=== PATIENT | female | born 1975 | race Caucasian/White ===

== ENCOUNTER 2018-01-22 00:26 | Outpatient (CLI) | payer OTHER, SELFPAY ==
--- NOTE | 2018-01-22 12:45 | DI.CT_ITS ---
SYMPTOMS/DIAGNOSIS: LT EAR PAIN, H92.02, JAW PAIN, R68.[address]: A noncontrast enhanced examination was performed. There is no evidence of an intra or extra-axial hemorrhage, mass edema or a territorial infarct. Small basal ganglia calcifications are identified and represent an incidental finding. The ventricles are normal. There is no evidence of skull pathology. The paranasal sinuses are unremarkable. The mastoid air cells are unremarkable. SUMMARY: Negative noncontrast enhanced cranial CT. CT EXAMINATION OF THE NECK: A with contrast enhanced CT examination of the neck was carried out according to the usual protocol with intravenous administration of 100 cc's of Omnipaque 350. There are numerous scattered lymph nodes at all levels in the neck bilaterally. There is no demonstrated mass. The salivary glands appear intact. The thyroid gland is normal. No vascular abnormality is seen. As visualized the bony structures appear unremarkable. There is no evidence of a CP angle or posterior fossa mass and nothing to suggest an acoustic neuroma. No definite vascular abnormality is seen. There is nothing to suggest a pharyngeal mass. The valleculae are intact. The vocal cords appear intact. There is no retropharyngeal soft tissue abnormality. The sinuses appear normal. No bony abnormality save for mild degenerative changes involving the lower cervical spine is demonstrated. SUMMARY: Numerous lymph nodes are noted in the neck. No enlarged lymph nodes are seen. There is no evidence of a soft tissue or bony mass. The visualized facial bones are intact. The mandible is intact. Also no definite abnormality is seen. No abnormality is identified, however, given the patient's symptomatology, further assessment with MRA of the neck and brain MRI is suggested.
== END 2018-01-22 00:46 ==
PROVIDERS: PCP Nurse Practitioner Family; Visit Provider Nurse Practitioner Family
DX: H92.02 Otalgia, left ear (principal); R68.84 Jaw pain; R59.0 Localized enlarged lymph nodes
CPT/HCPCS: 70491; 70450

== ENCOUNTER 2018-02-03 14:09 | Outpatient (REF) | payer OTHER, SELFPAY ==
[2018-02-03 14:25] LABS: Bilirubin Negative (Negative); Blood Negative (Negative); Clarity Clear; Glucose Negative (Negative); Ketones Negative (Negative); Leukocyte Esterase Negative (Negative); Nitrite Negative (Negative); Specific Gravity <= 1.005 (1.005-1.025); Urobilinogen 0.2 EU/dL (Up TO 0.2); pH 6.5 (5-8)
== END 2018-02-03 14:29 ==
LOC: LBN 14:09
PROVIDERS: PCP Nurse Practitioner Family; Visit Provider Nurse Practitioner Gerontology
DX: R35.0 Frequency of micturition (principal)
CPT/HCPCS: 87077; 81003; 87086; 87186

== ENCOUNTER 2018-02-23 15:42 | Outpatient (REF) | payer OTHER, SELFPAY ==
--- NOTE | 2018-02-23 15:00 | PAPFT_PTH ---
PATIENT: Che Yan LOC: [facility] U#:[id number] AGE/SX: 42/F ROOM: RE02/23/[address]: ARLEN Tilley : 1975 BED: DIS: 02/23/2018 SPEC #: [id number] RECD: 02/23/18 17:55 STATUS: AREN REMadisyn #: [id number] ASA: 02/23/18 15:[address]: Alyce Paul DEPT: [facility] Cytology RECD BY: Elaine Gonzalez ENTERED: 02/23/18 17:56 SP TYPE: PAPFT ASHLEY DR: Arely Osuna Tissues: 1 - CX/ENDOCX FOR PAP SMEARS Procedures: PAP THIN PREP/UVM Screening HPV DNA PROBE Comments: [id number]
== END 2018-02-23 16:02 ==
LOC: LBN 15:42
PROVIDERS: PCP Nurse Practitioner Family; Visit Provider Nurse Practitioner Family
DX: Z12.4 Encounter for screening for malignant neoplasm of cervix (principal); Z11.51 Encounter for screening for human papillomavirus (HPV)
CPT/HCPCS: 88142; 87624

== ENCOUNTER 2018-02-26 00:23 | Outpatient (CLI) | payer OTHER, SELFPAY ==
--- NOTE | 2018-02-26 15:47 | DI.MAMMO_ITS ---
SYMPTOMS/DIAGNOSIS: BASELINE SCREENING, Z12.31 BILATERAL SCREENING MAMMOGRAM: Mammograms were interpreted according to the usual protocol including computer analysis with CAD system, tomosynthesis and C view imaging. This is a baseline examination. The breasts are composed of heterogeneously dense fibroglandular tissue, breast density category C. In the superior right breast, there is a question of an area of nodular asymmetry versus overlying fibroglandular tissue. Spot compression views and ultrasound are requested for further evaluation. No abnormality seen in the left breast. IMPRESSION: Left breast category 1, negative. Right breast category 0. MQSA ASSESSMENT OF FINDINGS: Incomplete: Needs additional imaging evaluation. Category 0. Patient will receive a letter notifying them of these results. MQSA ASSESSMENT OF FINDINGS: Negative. Category 1. Patient will receive a letter notifying them of these results. Bi-RADS category C. The breasts are heterogeneously dense, which may obscure small masses.
== END 2018-02-26 00:43 ==
PROVIDERS: PCP Nurse Practitioner Family; Visit Provider Nurse Practitioner Family
DX: Z12.31 Encounter for screening mammogram for malignant neoplasm of breast (principal); R92.8 Other abnormal and inconclusive findings on diagnostic imaging of breast
CPT/HCPCS: 77063; 77067

== ENCOUNTER 2018-03-04 01:36 | Outpatient (CLI) | payer OTHER, SELFPAY ==
--- NOTE | 2018-03-04 10:55 | DI.COMBO_ITS ---
SYMPTOMS/DIAGNOSIS: F/U MAMMO, AREA OF NODULAR ASYMMETRY VS OVERLYING FIBROGLANDULAR TISSUE RT ADDITIONAL VIEWS OF THE RIGHT BREAST AND RIGHT BREAST ULTRASOUND: Additional images are interpreted according to the usual protocol including tomosynthesis and 2D imaging. Additional views of the right breast fail to show a persistent discrete mass. Breast density C. Right breast ultrasound was performed. The upper inner and upper outer quadrants were evaluated sonographically. No cystic or solid masses are seen. IMPRESSION: No evidence for malignancy. Yearly mammography is recommended. Category I. The findings were discussed with the patient on the date of the examination. SA ASSESSMENT OF FINDINGS: Negative. Category 1. Patient will receive a letter notifying them of these results. Bi-RADS category C. The breasts are heterogeneously dense, which may obscure small masses.
== END 2018-03-04 01:56 ==
PROVIDERS: PCP Nurse Practitioner Family; Visit Provider Nurse Practitioner Family
DX: Z12.31 Encounter for screening mammogram for malignant neoplasm of breast (principal); R92.8 Other abnormal and inconclusive findings on diagnostic imaging of breast; N64.59 Other signs and symptoms in breast
CPT/HCPCS: 76642; 77063; 77067

== ENCOUNTER 2018-05-20 15:07 | Outpatient (CLI) | payer OTHER, SELFPAY ==
--- NOTE | 2018-05-20 15:04 | DI.RAD_ITS ---
SYMPTOMS/DIAGNOSIS: SHORTNESS OF BREATH, R06.02 CHEST X-RAY, PA AND LATERAL: No priors. The heart is normal in size. The lungs are clear. The mediastinal structures and pleura appear intact. IMPRESSION: Normal chest.
[2018-05-20 16:19] LABS: Anion Gap 9.7 mmol/L (3-11); BUN 18 mg/dL (7-18); CO2 27.3 mmol/L (21.0-32.0); CREATININE 0.89 mg/dL (0.55-1.02); Calcium 9.6 mg/dL (8.5-10.1); Chloride 103 mmol/L (98-107); Glucose 115 mg/dL (70-100); Sodium 140 mmol/L (136-145)
[2018-05-20 16:25] LABS: HCT 42.7 % (36.0-46.0); HGB 14.3 g/dL (12.0-15.5); Mean Corp. HGB Concentration 33.5 g/dL (32.0-36.0); Mean Corpuscular Hemoglobin 30.8 pg (27.0-33.0); Mean Corpuscular Volume 91.8 fL (80-95); Mean Platelet Volume 11.6 fL (8.0-11.0); Platelet Count 261 x1000/uL (130-400); RBC 4.65 m/cumm (4.00-5.20); RBC Distribution Width 12.3 % (11.7-14.6); White Blood Cell Count 7.61 k/cumm (4.4-10.8)
[2018-05-20 18:36] LABS: D-Dimer 142 ng/mlFEU (<500)
== END 2018-05-20 15:27 ==
PROVIDERS: PCP Nurse Practitioner Family; Visit Provider Nurse Practitioner Family
DX: R06.02 Shortness of breath (principal)
CPT/HCPCS: 36415; 80048; 85027; 71046; 85379

== ENCOUNTER 2019-12-16 17:00 | Outpatient (REF) | payer OTHER, SELFPAY ==
[2019-12-16 17:42] LABS: Bilirubin Negative (Negative); Blood Negative (Negative); Clarity Clear (Clear); Glucose Negative (Negative); Ketones Negative (Negative); Leukocyte Esterase Negative (Negative); Nitrite Negative (Negative); Urobilinogen 0.2 EU/dL (Up TO 0.2); pH 5.5 (5-8)
== END 2019-12-16 17:20 ==
LOC: LBN 17:00
PROVIDERS: PCP Nurse Practitioner Family; Visit Provider Nurse Practitioner Gerontology
DX: R30.0 Dysuria (principal)
CPT/HCPCS: 81003

== ENCOUNTER 2020-02-10 14:19 | Outpatient (REF) | payer OTHER, SELFPAY ==
[2020-02-11 14:57] LABS: SARS-CoV-2 RNA Source Nasal/Nares
[2020-02-11 14:58] LABS: SARS-CoV-2 RNA Not Detected (NotDetected)
== END 2020-02-10 14:39 ==
LOC: NCHCN 14:19
PROVIDERS: PCP Nurse Practitioner Family; Visit Provider Nurse Practitioner Family
DX: Z11.59 Encounter for screening for other viral diseases (principal)
CPT/HCPCS: U0003

== ENCOUNTER 2020-05-18 10:31 | Outpatient (CLI) | payer OTHER, SELFPAY ==
--- NOTE | 2020-05-18 08:15 | DI.RAD_ITS ---
EXAM: XR FOOT LT COMPLETE CLINICAL HISTORY: L foot pain. TECHNIQUE: 2D digital imaging was performed. COMPARISON: No exams were available for comparison FINDINGS: There is no evidence of fracture nor diastasis of the Parisa neil joint. No osseous lesions nor erosio ns evident. No degenerative changes. No radiopaque foreign body. No pes planus. Os trigonum noted . IMPRESSION: DATA REPOSITORY: RADIATION DOSE DELIVERED:
== END 2020-05-18 10:32 | disposition home or self-care (01) ==
LOC: DIORS 10:32
PROVIDERS: PCP Nurse Practitioner Family; Referring Provider Nurse Practitioner Family; Visit Provider Physician Assistant
DX: M79.672 Pain in left foot (principal)
CPT/HCPCS: 73630

== ENCOUNTER 2020-05-30 07:00 | Outpatient (REF) | payer OTHER, SELFPAY | END 2020-05-30 07:01 | disposition home or self-care (01) | LOC: LBN 07:00 | PROVIDERS: PCP Nurse Practitioner Family; Visit Provider Nurse Practitioner Gerontology | DX: R30.0 Dysuria (principal) | CPT/HCPCS: 87086 ==

== ENCOUNTER 2020-07-18 13:46 | Outpatient (REF) | payer OTHER, SELFPAY | END 2020-07-18 13:47 | disposition home or self-care (01) | LOC: NCHCN 13:46 | PROVIDERS: PCP Nurse Practitioner Family; Visit Provider Family Medicine | DX: R30.0 Dysuria (principal) | CPT/HCPCS: 87086 ==

== ENCOUNTER 2021-08-21 16:11 | Outpatient (REF) | payer OTHER, SELFPAY ==
[2021-08-21 15:10] LABS: Vitamin B12 353 pg/mL (193-986)
[2021-08-22 10:23] LABS: Hepatitis C Ab w Rflx HCV PCR Negative (Negative)
[2021-08-23 06:52] LABS: Vitamin D 25 Total 30.8 ng/mL (30-100)
== END 2021-08-21 16:12 | disposition home or self-care (01) ==
LOC: NCHCN 16:11
PROVIDERS: PCP Nurse Practitioner Family; Visit Provider Nurse Practitioner Family
DX: Z00.00 Encounter for general adult medical examination without abnormal findings (principal); E55.9 Vitamin D deficiency, unspecified; R53.83 Other fatigue; G43.109 Migraine with aura, not intractable, without status migrainosus; Z11.59 Encounter for screening for other viral diseases; N80.3 Endometriosis of pelvic peritoneum
CPT/HCPCS: 82306; 86803; 82607; 84443

== ENCOUNTER 2022-01-25 01:48 | Outpatient (CLI) | payer OTHER, SELFPAY ==
[2022-01-29 17:30] LABS: Alternaria Tenuis IgE <0.35 kU/L; Bermuda Grass IgE <0.35 kU/L; Cat Epithelium IgE 2.12 kU/L; Cladosporium IgE <0.35 kU/L; Cockroach IgE <0.35 kU/L; Cottonwood IgE <0.35 kU/L; D Farinae IgE 1.26 kU/L; D Pteronyssinus IgE 1.04 kU/L; Dog Dander IgE 8.88 kU/L; Eastern Sycamore IgE <0.35 kU/L; Elm IgE <0.35 kU/L; Mountain Cedar IgE <0.35 kU/L; Oak IgE <0.35 kU/L; Red Sorrel IgE <0.35 kU/L; Rough Pigweed IgE <0.35 kU/L; Short Ragweed IgE <0.35 kU/L; Silver Birch IgE <0.35 kU/L; Timothy Grass IgE <0.35 kU/L; Walnut Tree IgE <0.35 kU/L
== END 2022-01-25 01:49 | disposition home or self-care (01) ==
LOC: LBO 01:49
PROVIDERS: PCP Nurse Practitioner Family; Visit Provider Nurse Practitioner Family
DX: J30.1 Allergic rhinitis due to pollen (principal); J30.2 Other seasonal allergic rhinitis; J30.81 Allergic rhinitis due to animal (cat) (dog) hair and dander; J30.89 Other allergic rhinitis
CPT/HCPCS: 82785; 86003

== ENCOUNTER 2023-01-27 14:50 | Outpatient (REF) | payer SELFPAY ==
[2023-01-27 16:06] LABS: Bilirubin Negative (Negative); Blood Small (Negative); Clarity Sl Cloudy (Clear); Glucose Negative (Negative); Ketones Negative (Negative); Leukocyte Esterase Large (Negative); Nitrite Negative (Negative); Specific Gravity 1.015 (1.005-1.025); Urobilinogen 0.2 mg/dL (Up to 0.2); pH 5.5 (5-8)
[2023-01-27 16:44] LABS: Bacteria Few HPF (Negative); C & S Indicated? C&S Done As Ordered; Casts Negative LPF (Negative); Crystals Negative HPF (Negative); Epithelial Cells Few HPF (Negative); Mucus Negative (Negative); RBC 0-2 HPF (0-2); WBC >50 HPF (0-5)
== END 2023-01-27 14:51 | disposition home or self-care (01) ==
LOC: LBN 14:50
PROVIDERS: PCP Nurse Practitioner Family; Visit Provider Nurse Practitioner Gerontology
DX: R10.2 Pelvic and perineal pain (principal); N32.89 Other specified disorders of bladder
CPT/HCPCS: 81003; 81015; 87086

== ENCOUNTER 2024-01-26 12:27 | Outpatient (REF) | payer BC, SELFPAY ==
[2024-01-26 11:53] LABS: Bilirubin Negative (Negative); Blood Negative (Negative); Clarity Clear (Clear); Glucose Negative (Negative); Ketones Negative (Negative); Leukocyte Esterase Small (Negative); Nitrite Negative (Negative); Specific Gravity <= 1.005 (1.005-1.025); Urobilinogen 0.2 mg/dL (Up to 0.2)
[2024-01-26 11:55] LABS: Bacteria Moderate HPF (Negative); Casts Negative LPF (Negative); Crystals Negative HPF (Negative); Epithelial Cells Few HPF (Negative); Mucus Negative (Negative); RBC Negative HPF (0-2)
[2024-01-26 11:56] LABS: C & S Indicated? C&S Done As Ordered
== END 2024-01-26 12:28 | disposition home or self-care (01) ==
LOC: LBN 12:27
PROVIDERS: PCP Nurse Practitioner Family; Visit Provider Nurse Practitioner Gerontology
DX: R31.0 Gross hematuria (principal); R30.0 Dysuria; B96.29 Other Escherichia coli [E. coli] as the cause of diseases classified elsewhere
CPT/HCPCS: 87077; 81003; 81015; 87086; 87186

== ENCOUNTER 2024-02-23 15:58 | Outpatient (REF) | payer BC, SELFPAY ==
--- OUTSIDE RECORDS SUMMARY | 2024-02-23 16:00 | XMS_ITS | Encounter Summary ---
Author Organization [facility] [address] Care Team Providers Care Junior Administrative Assistant Name Role Phone Arely Osuna LUC Primary Care Provider [phone] Reason for Visit * Reason Comments Follow-up subacromial injectio n R shoulder Encounter Details Date Type Department Care Team (Late st Contact Info) Description 12/11/2020 1:30 PM EDT Office Visit Orthopaedics at [address] [phone] Cyndie Yancey PA [address] [place] [address] [place] [address] Calcific tendinitis of right shoulder Social History Tobacco Use Types Packs/Day Years Used Date Smoking Tobacco: Never Smokeless Tobacco: Never Alcohol Use Standard Drinks/Week Comments Yes 2 (1 standard drink = 0.6 oz pur e alcohol) Sex and Gender Information Value Date Recorded Sex Assigned at Not on file Gender Identity Not on file Sexual Orientation Not on file documented as of this encounter Last Filed Vital Signs Vital Sign Reading Time Taken Comments Blood Pressure 124/85 12/11/2020 1:56 PM EDT Pulse 85 12/11/2020 1:56 PM EDT Temperature - - Respiratory Rate - - Oxygen Saturation - - Inhaled Oxygen Concentration - - Weight 63.5 kg (140 lb) 12/11/2020 1:56 PM EDT Height 160 cm (5' 3) 12/11/2020 1:56 PM EDT Body Mass Index 24.8 12/11/2020 1:56 PM EDT documented in this encounter Patient Instructions * Patient Instructions* Cyndie Yancey PA - 12/11/2020 1:30 PM EDT Responses to injections are variable. Try to take it easy for a few days to allow reduction of inflammation. Gentle range of motion exercises may help mitigate any feelings of stiffness or pressure in the joint and help distribute the medication. The medicine in the injection contains a local anesthetic that will wear off within a few hours. This doesn't mean that the injection did not work! It will likely take a few days for the steroid to take effect and for the inflammation to reduce to a degree where your symptoms improve. Should you develop any discomfort over the injection area, try take Tylenol or ibuprofen to alleviate the discomfort. If you notice any redness/swelling, drainage from the injection site, fevers, chills or severely increased pain after your injection, call into clinic or seek urgent medical evaluation right away. documented in this encounter Progress Notes * Cyndie Yancey PA - 12/11/2020 1:30 PM EDT PATIENT NAME: Che Yan AGE: 45 y.o. MR#: [id number] DATE OF INJURY/ONSET: ~8-9 weeks ago STAFF: Myriam Gamboa MD CHIEF COMPLAINT: follow up right shoulder pain/inury HISTORY OF PRESENT ILLNESS: Che Yan is a 45 y.o. female with a history of right SLAP repair in 2005 at [facility] who comes into clinic today for follow up regarding the right shoulder. She was last seen in clinic on 11/24/20 at which time she was referred for MR arthrogram which demonstrated SLAP tear and calcific tendinopathy. After reviewing case with Dr. Gamboa, he recommended trial of subacromialinjection first for diagnostic and therapeutic purposes to address pain related to the calcific tendinopathy, followed by image-guided GH joint injection as needed for diagnostic/therapeutic purposesafter that. This was discussed with patient over the phone 12/08, and she presents today for subacrom ial injection. PHYSICAL EXAM: This is a 45 y.o. female who is alert, oriented and in no acute distress. Visible skin is intact without erythema, ecchymosis or ulceration. No edema noted. Upper extremity is warm and well perfused. Sensation present to light touch throughout the nerve distributions of the upper extremity. There is tenderness to palpation over the lateral deltoid, coracoid, anterior GH joint line. Non-TTP over the clavicle, AC joint, scapular spine or trapezius. She demonstrates unrestricted elbow, wrist and finger motion. She demonstrates active forward flexion to 170; ER to 70; IR to lower thoracic spine (discomfort with all active ROM). Rotator cuff strength testing 5/5 in ER, IR, 5-/5 FF and empty can. Positive impingement signs. Positive [place]'s. Painful apprehension testing. Negative cross arm testing. DIAGNOSTIC STUDIES: MR arthrogram obtained 12/07 notable for SLAP lesion and calcific tendinopathy. MEDICAL DECISION MAKING: This is a 45 y.o. female with a history of right SLAP repair in 2005 at [facility] who presents for evaluation of right shoulder pain since an injury sustained playing volleyball ~8-9 weeks ago with MR arthrogram with SLAP lesion and calcific tendinopathy. -- Subacromial injection performed today in clinic as documented below, patient tolerated well -- Continue rest, ice, heat, Tylenol, NSAIDs for symptom relief (prescription provided for meloxicam, advised to take with food) -- She will monitor symptoms over the next 2 hours, 2 days, or 2 weeks. We will touch base in 2 weeks to assess her symptoms. If persistently symptomatic, would consider image-guided glenohumeral joint injection for diagnostic/therapeutic purposes -- She understands to contact us if they have any questions or concerns prior to their next clinic visit. PROCEDURE NOTE: SUBACROMIAL BURSA INJECTION A time-out was performed and the right shoulder was confirmed to be the patient's desired site of injection. The patient denied any known allergies to betadine, local anesthetics or corticosteroids. The patient was counseled about the potential risks of the procedure including but not limited to: infection, bleeding, steroid flare, transient increase in blood glucose, nerve/cartilage/tendon injury, and skin blanching at the injection site. There is also increased risk with repeated injections. Following time-out, the skin was prepped widely over the posterolateral aspect of the shoulder withalcohol and betadine. Using sterile technique, a solution consisting of 4cc 2% lidocaine and 1 cc Kenalog 40 (40 mg) was injected just inferior and medial to the posterolateral corner of the acromionand directed toward the coracoid process using a 22 gauge needle. The needle was felt to slide justinferior to the acromion and the medications flowed freely into the subacromial space. The skin wassubsequently cleansed with alcohol and a band-aid was applied. Post-injection education was provided. The patient tolerated the procedure well. They are aware to contact the office should they develop any concerning symptoms post-procedure or if they have any questions or concerns. Cyndie Yancey PA-C documented in this encounter Plan of Treatment Not on file documented as of this encounter Visit Diagnoses Diagnosis Calcific tendinitis of right shoulder Calcifying tendinitis of shoulder documented in this encounter Administered Medications Inactive Administered Medications - up to 3 most recent administrations Medication Order MAR Action Action Date Dose Rate Site lidocaine (pf) (Xylocaine) (20 mg/mL) 2% injection 80 mg 80 mg, Subcutaneous, ONCE, 1 dose, On Fri12/11/20 at 1430, Routine Given 12/11/2020 2:10 PM EDT 80 mg triamcinolone acetonide (Kenalog-40) (40 mg/mL) injection 40 mg 40 mg, Intra-articular, ONCE, 1 dose, On Fri12/11/20 at 1430, In-office injection into the subacromial space of the shoulder, Routine Given 12/11/2020 2:10 PM EDT 40 mg documented in this encounter Care Teams Junior Administrative Assistant Relationship Specialty Start Date End Date Arely Osuna APRN [address] [place] [address] PCP - General Family Medicine 12/07/20 documented as of this encounter
--- OUTSIDE RECORDS SUMMARY | 2024-02-23 16:00 | XMS_ITS | Encounter Summary ---
Author Organization [facility] [place] [address] Care Team Providers Care Groundskeeping Maintenance Worker Name Role Phone Arely Osuna LUC Primary Care Provider [phone] Encounter Details Date Type Department Care Team (Late st Contact Info) Description 12/25/2020 Telephone [place] [id number] Cyndie Yancey PA [address] [place] [address] [place] [address] Social History Tobacco Use Types Packs/Day Years Used Date Smoking Tobacco: Never Smokeless Tobacco: Never Alcohol Use Standard Drinks/Week Comments Yes 2 (1 standard drink = 0.6 oz pur e alcohol) Sex and Gender Information Value Date Recorded Sex Assigned at Not on file Gender Identity Not on file Sexual Orientation Not on file documented as of this encounter Miscellaneous Notes * Telephone Encounter - Cyndie Yancey PA - 12/25/2020 11:02 AM EDT Called to speak to patient to check in re: results of recent subacromial injection performed in clinic 12/11/20. She reports that she is feeling much better; reports ~3 days after the injection she noticed improvement in her symptoms. Reports that the shoulder has been feeling even better than it was before her initial clinic visit. For now, she wishes to continue with Physical Therapy and monitoring of her symptoms. She will call or return to clinic with any recurrence or worsening pain or any questions or concerns. documented in this encounter Plan of Treatment Not on file documented as of this encounter Visit Diagnoses Not on filedocumented in this encounter Care Teams Groundskeeping Maintenance Worker Relationship Specialty Start Date End Date Arely Osuna APRN [address] [place] [address] PCP - General Family Medicine 12/07/20 documented as of this encounter
--- OUTSIDE RECORDS SUMMARY | 2024-02-23 16:00 | XMS_ITS | Encounter Summary ---
[facility] [place] [address] Care Team Providers Care Director Of Institutional Sales Name Role Phone None Primary Care Provider Unavailabl e Encounter Details Date Type Department Care Team (Late st Contact Info) Description 11/24/2020 [place] [address] Val Moses MD [facility] [place] [address] Social History Tobacco Use Types Packs/Day Years Used Date Smoking Tobacco: Never Smokeless Tobacco: Never Alcohol Use Standard Drinks/Week Comments Yes 2 (1 standard drink = 0.6 oz pur e alcohol) Sex and Gender Information Value Date Recorded Sex Assigned at Not on file Gender Identity Not on file Sexual Orientation Not on file documented as of this encounter Plan of Treatment Not on file documented as of this encounter Visit Diagnoses Not on filedocumented in this encounter Care Teams Director Of Institutional Sales Relationship Specialty Start Date End Date None None PCP - General 02/10/20 12/06/20 documented as of this encounter
--- OUTSIDE RECORDS SUMMARY | 2024-02-23 16:00 | XMS_ITS | Encounter Summary ---
[facility] [place] [address] Care Team Providers Care Recreation Attendant Name Role Phone Arely Osuna GRAPHICS ARTIST Primary Care Provider [phone] Encounter Details Date Type Department Care Team (Latest Contact Info) Description 12/07/2020 1:00 PM EDT Ancillary Procedure Radiology Xray at [facility] [place] [id number] Myriam Gamboa MD [facility] [place] [address] Injury of right shoulder, initial encounter; History of Superior glenoid labrum lesion of right shoulder, s/p repair at [facility]SH in 2005 Social History Tobacco Use Types Packs/Day Years [...] on file documented as of this encounter Procedures Procedure Name Priority Date/Time Associated Diagnosis Comments XR FLUORO ARTHROGRAM INJECTION SHOULDER RIGHT Routine 12/07/2020 1:29 PM EDT Injury of right shoulder, initial encounter History of Superior glenoid labrum lesion of right shoulder, s/p repair at [facility]SH in 2005 documented in this encounter Results * XR Fluoro Arthrogram Injection Shoulder Right (12/07/2020 1:29 PM EDT) Anatomical Region Laterality Modality Shoulder Right Digital Radiogra phy Impressions 12/07/2020 1:43 PM EDT Uneventful arthrogram Thank you for letting us participate in the care of this patient. ??If you are a health care provider and have any questions regarding this report, please contact the number below. ??For patients who have questions please contact the health spiritual care coordinator that requested your imaging first. ? Narrative 12/07/2020 1:43 PM EDT HISTORY: ??right shoulder injury, history of SLAP repair, new injury/pain, MR arthrogram of Arthrogram For Injection Of Contrast TECHNIQUE: After an extensive conversation with the patient regarding risks and benefits, oral and written consent were obtained.? A pre-procedural time-out was performed, including review of the patient's relevant electronic medical record and allergies, as per [facility] protocol. The patient was positioned supine on the fluoroscopic table. ??The right was prepped and draped in the usual aseptic manner. ??1% Lidocaine was used to achieve local anesthesia. ??Under fluoroscopic guidance, a 22 spinal needle was advanced into the joint space. ??After confirmation of intra-articular location of needle tip by using a small injection of the contrast mixture, a total of 12 ml of the contrast mixture was injected. All needles removed at end of procedure. FINDINGS: 1. Contrast in 12 joint space 2. Additional post-contrast injection images were obtained in different projections. MEDICATIONS: Lidocaine 1% - <5 ml, for subcutaneous anesthesia CONTRAST: 20cc mixture of the following were prepared: Dotarem- .1cc (1/100 dilution) Normal Saline - 10ml Omnipaque 300 Utilized: 5 mL 1% Lidocaine - 5ml Only 12 ml of this mixture injected into joint space. FLUORO TIME: 0.43 minutes. COMPLICATIONS: ??None immediate. POST-PROCEDURE CARE: Instructions regarding monitor of infection and management of post-procedural pain were reviewed with the patient. Procedure Note Luis Lechuga MD - 12/07/2020 HISTORY: right shoulder injury, history of SLAP repair, new injury/pain,MR arthrogram of Arthrogram For Injection Of Contrast TECHNIQUE: After an extensive conversation with the patient regarding risks andbenefits, oral and written consent were obtained.? A pre-procedural time-out was performed, including review of the patient's relevant electronic medicalrecord and allergies, as per [facility] protocol. The patient was positioned supine on the fluoroscopic table. The rightwas prepped and draped in the usual aseptic manner. 1% Lidocaine was usedto achieve local anesthesia. Under fluoroscopic guidance, a 22 spinal needlewas advanced into the joint space. After confirmation of intra-articularlocation of needle tip by using a small injection of the contrast mixture, a totalof 12 ml of the contrast mixture was injected. All needles removed at end of procedure. FINDINGS: 1. Contrast in 12 joint space 2. Additional post-contrast injection images were obtained in different projections. MEDICATIONS: Lidocaine 1% - <5 ml, for subcutaneous anesthesia CONTRAST: 20cc mixture of the following were prepared: Dotarem- .1cc (1/100 dilution) Normal Saline - 10ml Omnipaque 300 Utilized: 5 mL 1% Lidocaine - 5ml Only 12 ml of this mixture injected into joint space. FLUORO TIME: 0.43 minutes. COMPLICATIONS: None immediate. POST-PROCEDURE CARE: Instructions regarding monitor of infection andmanagement of post-procedural pain were reviewed with the patient. IMPRESSION Uneventful arthrogram Thank you for letting us participate in the care of this patient. If youare a health care provider and have any questions regarding this report,please contact the number below. For patients who have questions please contactthe health spiritual care coordinator that requested your imaging first. Myriam Gamboa MD IMG FLUORO ORDERABLE S documented in this encounter Visit Diagnoses Diagnosis Injury of right shoulder, initial encounter History of Superior glenoid labrum lesion of right shoulder, s/p repair at [facility] in 2005 documented in this encounter Administered Medications Inactive Administered Medications - up to 3 most recent administrations Medication Order MAR Action Action Date Dose Rate Site gadoterate meglumine (Dotarem) (0.5 mMol/mL) injection solution 0.2 mL 0.2 mL, Intra-articular, ONCE PRN, 1 dose, Starting on Sirisha 12/07/20 at 1303, Until Sirisha 12/07/20 at 1327, Per Protocol, Routine Given 12/07/2020 1:27 PM EDT 0.2 mLs iohexoL (Omnipaque) (300 mg/mL) injection solution 5 mL 5 mL, Intra-articular, ONCE PRN, 1 dose, Starting on Sirisha 12/07/20 at 1303, Until Sirisha 12/07/20 at 1326, Per Protocol, Warning Vesicant/Irritant Medication , Routine Given 12/07/2020 1:26 PM EDT 5 mLs lidocaine (Xylocaine) 1% (10 mg/mL) injection 50 mg 50 mg (5 mL), Subcutaneous, ONCE, 1 dose, On Sirisha 12/07/20 at 1330, Routine Given 12/07/2020 1:24 PM EDT 50 mg documented in this encounter Care Teams Recreation Attendant Relationship Specialty Start Date End Date Arely Osuna APRN [address] [place] [address] PCP - General Family Medicine 12/07/20 documented as of this encounter
--- OUTSIDE RECORDS SUMMARY | 2024-02-23 16:00 | XMS_ITS | Encounter Summary ---
Author Organization [facility] Address [facility] [place] [address] Care Team Providers Care Communications Equipment Operator Name Role Phone None Primary Care Provider Unavailabl e Encounter Details Date Type Department Care Team (Latest Contact Info) Description 11/24/2020 11:53 AM EDT - 11/24/2020 11:59 PM EDT Hospital Encounter XRay at [address] [place] [address] Myriam Gamboa MD [facility] [place] [address] Injury of right shoulder, initial encounter; Superior glenoid labrum lesion of right shoulder, initial encounter Discharge Disposition: Home Social History Tobacco Use Types Packs/Day Years Used Date Smoking Tobacco: Never Smokeless Tobacco: Never Alcohol Use Standard Drinks/Week Comments Yes 2 (1 standard drink = 0.6 oz pur e alcohol) Sex and Gender Information Value Date Recorded Sex Assigned at Not on file Gender Identity Not on file Sexual Orientation Not on file documented as of this encounter Medications at Time of Discharge Medication Sig Dispensed Refills Start Date End Date fluticasone propionate (Flovent HFA) 110 mcg/actuation HFA Aerosol Inhaler Inhale 1 puff into the lungs 2 times daily. levalbuteroL (XOPENEX HFA) 45 mcg/actuation HFA Aerosol Inhaler Inhale 1-2 puffs into the lungs every 4 hours as needed. fexofenadine HCl (STAN ALLERGY ORAL) Take by mouth. documented as of this encounter Plan of Treatment Not on file documented as of this encounter Procedures Procedure Name Priority Date/Time Associated Diagnosis Comments XR SHOULDER RIGHT Routine 11/24/2020 12: 04 PM EDT Injury of right shoulder, initial encounter Superior glenoid labrum lesion of right shoulder, initial encounter documented in this encounter Results * XR Shoulder Right (Generic) (11/24/2020 12:04 PM EDT) Anatomical Region Laterality Modality Shoulder Right Digital Radiogra phy Impressions 11/24/2020 4:29 PM EDT 1. ??Infraspinatus and subscapularis calcific tendinopathy. 2. ??No acute fracture is identified. I have personally reviewed the image(s) and the resident's interpretation and agree with the findings, Val Moses MD at 11/24/2020 4:29 PM Thank you for letting us participate in the care of this patient. ??If you are a health care provider and have any questions regarding this report, please contact the number below. ??For patients who have questions please contact the health career specialist that requested your imaging first. ? Electronically signed by: Val Moses MD, [facility] ([phone]), at 11/24/2020 4:29 PM Narrative 11/24/2020 4:29 PM EDT EXAMINATION: XR SHOULDER RIGHT (GENERIC) CLINICAL HISTORY: right shoulder injury, rule out occult fracture (as entered by ordering provider in the order requisition) TECHNIQUE: AP, Grashey, scapular Y, axillary views of the right shoulder. COMPARISON: None FINDINGS: No fracture or malalignment. Glenohumeral joint space is preserved. 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 Amorphous calcifications adjacent to the greater and lesser tuberosities, at the insertions of the infraspinatus and subscapularis. Procedure Note Val Moses MD - 11/24/2020 EXAMINATION: XR SHOULDER RIGHT (GENERIC) CLINICAL HISTORY: right shoulder injury, rule out occult fracture (asentered by ordering provider in the order requisition) TECHNIQUE: AP, Grashey, scapular Y, axillary views of the right shoulder. COMPARISON: None FINDINGS: No fracture or malalignment. Glenohumeral joint space is preserved. 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 Amorphous calcifications adjacent to the greater andlesser tuberosities, at the insertions of the infraspinatus and subscapularis. IMPRESSION 1. Infraspinatus and subscapularis calcific tendinopathy. 2. No acute fracture is identified. I have personally reviewed the image(s) and the resident's interpretationand agree with the findings, Val Moses MD at 11/24/2020 4:29 PM Thank you for letting us participate in the care of this patient. If youare a health care provider and have any questions regarding this report,please contact the number below. For patients who have questions please contactthe health career specialist that requested your imaging first. Electronically signed by: Val Moses MD, [facility]([phone]), at 11/24/2020 4:29 PM Myriam Gamboa MD IMG DX ORDERABLES documented in this encounter Visit Diagnoses Diagnosis Injury of right shoulder, initial encounter Superior glenoid labrum lesion of right shoulder, initial encounter documented in this encounter Care Teams Communications Equipment Operator Relationship Specialty Start Date End Date None None PCP - General 02/10/20 12/06/20 documented as of this encounter
--- OUTSIDE RECORDS SUMMARY | 2024-02-23 16:00 | XMS_ITS | Encounter Summary ---
Author Organization [facility] [place] [address] Care Team Providers Care Mill Crane Operator Name Role Phone EnrriqueSusana wuhryn Darian CALLE Primary Care Provider [phone] Reason for Referral * Diagnostic Test (Routine) - Closed Specialty Diagnoses / Procedures Referred By Contac t Referred To Contact Radiology Diagnoses Injury of right shoulder, initial encounter Superior glenoid labrum lesion of right shoulder, initial encounter Procedures MRI Arthrogram Shoulder Right Cyndie Yancey PA [facility] [place] [address] [facility] [address] [place] [address] Referral ID Status Reason Start Date Expiration Date V isits Requested Visits Authorized [id number] Closed Specialty Service Requested 11/24/2020 05/24/2022 1 1 Reason for Visit * Diagnostic Test (Routine) - Closed Specialty Diagnoses / Procedures Referred By Contac t Referred To Contact Radiology Diagnoses Injury of right shoulder, initial encounter Superior glenoid labrum lesion of right shoulder, initial encounter Procedures MRI Arthrogram Shoulder Right Cyndie Yancey PA [facility] [place] [address] [facility] [address] [place] [address] Referral ID Status Reason Start Date Expiration Date V isits Requested Visits Authorized [id number] Closed Specialty Service Requested 11/24/2020 05/24/2022 1 1 Encounter Details Date Type Department Care Team (Latest Contact Info) Description 12/07/2020 12:57 PM EDT - 12/07/2020 11:59 PM EDT Hospital Encounter Radiology MRI at [facility] [place] [address] Myriam Gamboa MD [facility] [place] [address] Injury of right shoulder, initial encounter; History of Superior glenoid labrum lesion of right shoulder, s/p repair at [facility] in 2005 Discharge Disposition: Home Social History Tobacco Use [...] Procedure Name Priority Date/Time Associated Diagnosis Comments MRI ARTHROGRAM SHOULDER RIGHT Routine 12/07/2020 2:28 PM EDT Injury of right shoulder, initial encounter History of Superior glenoid labrum lesion of right shoulder, s/p repair at [facility] in 2005 documented in this encounter Results * MRI Arthrogram Shoulder Right (12/07/2020 2:28 PM EDT) Anatomical Region Laterality Modality Shoulder Right Magnetic Resonan ce Impressions 12/07/2020 2:45 PM EDT Complex SLAP tear of the superior labrum, involving the biceps anchor. High-grade partial tear at the biceps anchor. Minimally displaced tear at the posterior labrum chondral labral junction. Calcific tendinosis of the rotator cuff without discrete rotator cuff tear. Thank you for letting us participate in the care of this patient. ??If you are a health care provider and have any questions regarding this report, please contact the number below. ??For patients who have questions please contact the health manager career that requested your imaging first. ? Electronically signed by: Wenceslao Rudd MD, [facility] ([phone]), at 12/07/2020 2:45 PM Narrative 12/07/2020 2:45 PM EDT EXAMINATION: MRI ARTHROGRAM SHOULDER RIGHT CLINICAL HISTORY: Shoulder pain, labral tear suspected, nondiagnostic xray TECHNIQUE: MRI of the right shoulder was performed after administration of intra-articular contrast. COMPARISON: 11/24/2020 radiographs of the right shoulder FINDINGS: Rotator cuff Supraspinatus and infraspinatus: At the bursal surface of the posterior supraspinatus/anterior infraspinatus footprint, there is globular mineralization with adjacent mild edema. The tendon is heterogeneous. There is no discrete tear. Subscapularis: There is globular mineralization adjacent to the bursal surface of the subscapularis with adjacent mild edema. No tear. Teres minor: Normal Muscle bulk: Normal Deltoid: Normal Labrum: The superior labrum is truncated and has complex tearing series 7 image 15, extending from anterior to posterior. It also involves the biceps anchor. There is a high-grade partial tear at the biceps anchor series 10 image 8. The labral tear also extends into the posterior labrum where it is truncated and minimally displaced at the chondral labral junction series 10 image 13. Long head of the biceps: High-grade partial tear at the biceps anchor. Normal extra-articular biceps. Bones: No fracture. [place] at the superior glenoid, consistent with prior repair. Normal cartilage. Glenohumeral joint: Normal cartilage. No intra-articular body seen. Acromioclavicular joint: Mild hypertrophy. Subacromial/subdeltoid bursal fluid: No extravasation of fluid into the bursa. Procedure Note Wenceslao Rudd MD - 12/07/2020 EXAMINATION: MRI ARTHROGRAM SHOULDER RIGHT CLINICAL HISTORY: Shoulder pain, labral tear suspected, nondiagnosticxray TECHNIQUE: MRI of the right shoulder was performed after administration ofintra-articular contrast. COMPARISON: 11/24/2020 radiographs of the right shoulder FINDINGS: Rotator cuff Supraspinatus and infraspinatus: At the bursal surface of the posterior supraspinatus/anterior infraspinatus footprint, there is globularmineralization with adjacent mild edema. The tendon is heterogeneous. There is nodiscrete tear. Subscapularis: There is globular mineralization adjacent to the bursalsurface of the subscapularis with adjacent mild edema. No tear. Teres minor: Normal Muscle bulk: Normal Deltoid: Normal Labrum: The superior labrum is truncated and has complex tearing series 7image 15, extending from anterior to posterior. It also involves the bicepsanchor. There is a high-grade partial tear at the biceps anchor series 10 image 8.The labral tear also extends into the posterior labrum where it is truncatedand minimally displaced at the chondral labral junction series 10 image 13. Long head of the biceps: High-grade partial tear at the biceps anchor.Normal extra-articular biceps. Bones: No fracture. [place] at the superior glenoid, consistent withprior repair. Normal cartilage. Glenohumeral joint: Normal cartilage. No intra-articular body seen. Acromioclavicular joint: Mild hypertrophy. Subacromial/subdeltoid bursal fluid: No extravasation of fluid into thebursa. IMPRESSION Complex SLAP tear of the superior labrum, involving the biceps anchor. High-grade partial tear at the biceps anchor. Minimally displaced tear atthe posterior labrum chondral labral junction. Calcific tendinosis of the rotator cuff without discrete rotator cufftear. Thank you for letting us participate in the care of this patient. If youare a health care provider and have any questions regarding this report,please contact the number below. For patients who have questions please contactthe health manager career that requested your imaging first. Electronically signed by: Wenceslao Rudd MD, [facility]([phone]), at 12/07/2020 2:45 PM Myriam Gamboa MD IM MRI ORDERABLES documented in this encounter Visit Diagnoses Diagnosis Injury of right shoulder, initial encounter History of Superior glenoid labrum lesion of right shoulder, s/p repair at [facility] in 2005 documented in this encounter Care Teams Mill Crane Operator Relationship Specialty Start Date End Date Arely Osuna APRN [address] [place] [address] PCP - General Family Medicine 12/07/20 documented as of this encounter
--- OUTSIDE RECORDS SUMMARY | 2024-02-23 16:00 | XMS_ITS | Encounter Summary ---
Author Organization [facility] [place] [address] Care Team Providers Care Contract Implementation Analyst Name Role Phone Arely Osuna APRN Primary Care Provider [phone] Encounter Details Date Type Department Care Team (Late st Contact Info) Description 12/08/2020 Telephone [place] [id number] Cyndie Yancey PA [address] [place] [address] [place] [address] Social History Tobacco Use Types Packs/Day Years [...] Telephone Encounter - Cyndie Yancey PA - 12/08/2020 10:33 AM EDT Contacted patient after reviewing imaging/case with Dr. Gamboa. He recommends trial of subacromial injection first for diagnostic and therapeutic purposes to address pain related to the calcific tendinopathy. If subacromial injection only relieves a portion of her pain, would consider image-guided glenohumeral joint injection also for diagnostic/therapeutic purposes. Recommend PT in addition to theabove. If persistently symptomatic despite aforementioned treatment, could consider surgical intervention in future as warranted. Will ask our team to contact patient to schedule return clinic visit for subacromial injection. documented in this encounter Plan of Treatment Not on file documented as of this encounter Visit Diagnoses Not on filedocumented in this encounter Care Teams Contract Implementation Analyst Relationship Specialty Start Date End Date Arely Osuna APRN [address] [place] [address] PCP - General Family Medicine 12/07/20 documented as of this encounter
--- OUTSIDE RECORDS SUMMARY | 2024-02-23 16:00 | XMS_ITS | Clinical Summary ---
Author Organization [facility] [place] [address] Care Team Providers Care Production Officer Name Role Phone EnrriqueSusana wusorin Farmer APRN Primary Care Provider [phone] [phone] Allergies No known active allergies Medications Medication Sig Dispensed Refills Start Date End Date Status fluticasone propionate (Flovent HFA) 110 mcg/actuation HFA Aerosol Inhaler Inhale 1 puff into the lungs 2 times daily. Active levalbuteroL (XOPENEX HFA) 45 mcg/actuation HFA Aerosol Inhaler Inhale 1-2 puffs into the lungs every 4 hours as needed. Active fexofenadine HCl (STAN ALLERGY ORAL) Take by mouth. Active ibuprofen (Advil) 800 mg Tablet Take 800 mg by mouth every 6 hours as needed for Pain. Active meloxicam (MOBIC) 15 mg TabletIndications:[place] cific tendinitis of right shoulder Take 1 tablet by mouth daily. 30 tablet 12/11/2020 Active Active Problems No known active problems Social History Tobacco Use Types Packs/Day Years Used Date Smoking Tobacco: Never Smokeless Tobacco: Never Alcohol Use Standard Drinks/Week Comments Yes 2 (1 standard drink = 0.6 oz pur e alcohol) Sex and Gender Information Value Date Recorded Sex Assigned at Not on file Gender Identity Not on file Sexual Orientation Not on file Last Filed Vital Signs Vital Sign Reading [...] Mass Index 24.8 12/11/2020 1:56 PM EDT Plan of Treatment Health Maintenance Due Date Last Done Comments CT Colonography 1974 Colonoscopy 1974 Colorectal Cancer Screening 1974 FIT DNA 1974 FIT 1974 Sigmoidoscopy (10 year) with FIT yearly 1974 Sigmoidoscopy 1974 HIV screen 1992 Hepatitis C Screening 1992 Hepatitis B vaccine (0-59 yrs) (1) 1993 Tetanus/Diphtheria/Pertussis Vaccines (1 - Tdap) 05/28 HPV test 2004 PAP Smear 2004 Breast Cancer Share Decision Needed 2014 Breast Cancer screening 2014 Covid-19 Vaccine ( - season) 2023 Influenza (Flu) vaccine (1 o f 1 - Influenza standard series) 11/23/2023 Care Teams Production Officer Relationship Specialty Start Date End Date Arely Osuna APRN [address] [place] [address] PCP - General Family Medicine 12/07/20
--- OUTSIDE RECORDS SUMMARY | 2024-02-23 16:01 | XMS_ITS | Encounter Summary ---
Author Organization [facility] [place] [address] Care Team Providers Care Core Cutter Name Role Phone None Primary Care Provider Unavailabl e Encounter Details Date Type Department Care Team (Latest Contact Info) Description 02/10/2020 2:58 PM EST - 02/10/2020 11:59 PM EST Hospital [place] [address] Discharge Disposition: Home Social History Tobacco Use Types Packs/Day Years Used Date Smoking Tobacco: Never Assessed Sex and Gender Information Value Date Recorded Sex Assigned at Not on file Gender Identity Not on file Sexual Orientation Not on file documented as of this encounter Plan of Treatment Not on file documented as of this encounter Procedures Procedure Name Priority Date/Time Associated Diagnosis Comments COVID-19 PCR Routine 02/10/2020 8:18 AM EST documented in this encounter Results * COVID-19 PCR (02/10/2020 8:18 AM EST) SARS-CoV-2 RNA Not Detected Not Detected [facility] Comment: This result should be interpreted in combination with the clinical observations, patient history and epidemiological information in making a final diagnosis. For testing of asymptomatic individuals, assay performance characteristics and clinical utility have not been evaluated. Testing for SARS-CoV-2 (Severe acute respiratory syndrome coronavirus 2, formerly known as 2019 novel coronavirus or 2019-nCoV) to aid in the diagnosis of COVID-19 is performed using the [employer] RealTime SARS-CoV-2 Assay as authorized by the FDA Emergency Use Authorization (EUA). This EUA assay is intended for In-vitro Diagnostic (IVD) use with respiratory specimens such as nasopharyngeal swabs collected from individuals during the acute phase of infection. This assay is performed based on the instructions for use provided by [employer] and additional guidance provided by CDC and FDA. Testing is performed in the [facility] within the Department of Pathology and Laboratory Medicine at [facility], certified under the Clinical Laboratory Improvement Amendments of 1988 (CLIA), 42 U.S.C. 263a, to perform high complexity tests. Assay performance has been verified according to clinical laboratory regulatory requirements for use with specimens collected from individuals suspected of COVID-19. Test results are provided above. A result of ? Not Detected? indicates that the viral RNA target is not present above the limit of detection, but does not preclude SARS-CoV-2 infection. False negative results may occur if a specimen is improperly collected, transported or handled; if amplification inhibitors are present; or if inadequate numbers of viral particles are present in the specimen. When a diagnostic test is negative, the possibility of a false negative result should be considered in the context of a patient? s recent exposures and the presence of clinical signs and symptoms consistent with COVID-19. A result of ? Detected? indicates that RNA from SARS-CoV-2 was detected and the patient is infected. As required or requested by public health authorities, positive specimens may be sent for additional testing. Positive and negative predictive values for this test are highly dependent on disease prevalence. A result of ? Invalid? indicates that neither the viral RNA targets nor the internal control target was detected. An invalid result suggests the presence of inhibitors. Recollection and re-testing is recommended in the case of an invalid result. CDC COVID-19 criteria for testing on human specimens and clinical management guidance information are available at the CDC Coronavirus Disease 2019 (COVID-19) webpage under ? Information for Healthcare Professionals? (https://www.cdc.gov/coronavirus/2019-ncov/hcp/index.html) Additional information about this and other EUA tests can be found in provider and patient fact sheets at the following FDA website: https://www.fda.gov/medical-devices/ngbqpxqpwgw-wutkjqr-1800-cwcny-23-tmvfyhxmq- use-a yzjnymoplqafi-fvyphun-ygttmfl/nebxl-atntbtimsiw-uzbg SARS-CoV-2 RNA Source [facility] Specimen from nose (specimen) Other / Unknown 02/10/2020 8:18 AM EST 02/10/2020 10:00 PM EST Narrative Resulting Agency Comment Spec In Lab Eliana Manzo HELP DESK ANALYST MOLECULAR ORDERABLE S [facility] [place] [address] documented in this encounter Visit Diagnoses Not on filedocumented in this encounter Care Teams Core Cutter Relationship Specialty Start Date End Date None None PCP - General 02/10/20 12/06/20 documented as of this encounter
--- OUTSIDE RECORDS SUMMARY | 2024-02-23 16:01 | XMS_ITS | Encounter Summary ---
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 Name Role Phone None Primary Care Provider Unavailabl e Reason for Referral * Diagnostic Test (Routine) - Closed Specialty Diagnoses / Procedures Referred By Tara t Referred To Contact Radiology Diagnoses Injury of right shoulder, initial encounter Superior glenoid labrum lesion of right shoulder, initial encounter Procedures MRI Arthrogram Shoulder Right Cyndie Yancey PA [facility] [place] [address] [facility] Rad Mri [address] [place] [address] Referral ID Status Reason Start Date Expiration Date V isits Requested Visits Authorized [id number] Closed Specialty Service Requested 11/24/2020 05/24/2022 1 1 Reason for Visit * Reason Comments Establish Care Right Shoulder Injur y 10/09/2020 * Consultation (Routine) - Closed Specialty Diagnoses / Procedures Referred By Controya t Referred To Contact Orthopaedics Diagnoses Right Shoulder Injury 10/09/2020 Self mail Myriam Gamboa MD [facility] [place] [address] Referral ID Status Reason Start Date Expiration Date V isits Requested Visits Authorized [id number] Closed Consult, Test & Treat 11/20/2020 11/20/2021 1 1 Encounter Details Date Type Department Care Team (Late st Contact Info) Description 11/24/2020 11:00 AM EDT Office [place] [address] Cyndie Yancey PA [address] [place] [address] [place] [address] Injury of right shoulder, initial encounter (Primary Dx); History of Superior glenoid labrum lesion of [...] Sign Reading Time Taken Comments Blood Pressure 128/67 11/24/2020 10:59 AM EDT Pulse 64 11/24/2020 10:59 AM EDT Temperature - - Respiratory Rate - - Oxygen Saturation - - Inhaled Oxygen Concentration - - Weight 63.5 kg (140 lb) 11/24/2020 10:59 AM EDT pt reported Height 160 cm (5' 3) 11/24/2020 10:59 AM EDT pt reported Body Mass Index 24.8 11/24/2020 10:59 AM EDT documented in this encounter Progress Notes * Cyndie Yancey PA - 11/24/2020 11:00 AM EDT PATIENT NAME: Che Yan AGE: 45 y.o. MR#: [id number] DATE OF INJURY/ONSET: ~6-7 weeks ago CHIEF COMPLAINT: right shoulder pain HISTORY OF PRESENT ILLNESS: Ms. Yan is a right hand dominant 45 y.o. female with a history of right SLAP repair in 2005 at an outside hospital who comes into clinic today for evaluation of right shoulder pain. She reports that she did experience chronic mild issues following her SLAP repair, which she was managing conservatively. Approximately 6 to 7 weeks ago she was playing volleyball and hit the ball with her arm extended and abducted; she noticed quick twisting movement and immediate pain in her shoulder. She had been scheduled for PT for a hip/SI problem, but redirected the focus of therapy to her shoulder; she completed 5 weeks of PT with no improvement in her symptoms. She presents today for further evaluation. She describes that her range of motion is okay, but she experiencespain with any movement of the right arm, particularly when her arm is positioned with her thumbs down. She notices pain with any position that she tries to sleep in. She feels her symptoms are getting worse as opposed to better. She does endorse some intermittent clicking, but tries to avoid any motion that causes pain or catching symptoms in the shoulder. She denies any neil instability or subluxation. She feels that her symptoms overall are very similar to those that she experienced prior toher SLAP repair in 2005. She also experiences referred pain in the deltoid that is aching in character. She takes occasional ibuprofen when needed. She describes the pain to be 3 out of 10 at the least, though the pain escalates with any movement of her right arm. She denies any numbness or tingling in the right upper extremity and denies any elbow pain. She presents for further evaluation and management. Medications and Allergies were reviewed in eD-H. PROBLEM LIST: There is no problem list on file for this patient. PAST MEDICAL HX: History reviewed. No pertinent past medical history. PAST SURGICAL HX: History reviewed. No pertinent surgical history. FAMILY HX: History reviewed. No pertinent family history. SOCIAL HX: Social History Occupational History ??? Not on file Tobacco Use ??? Smoking status: Never Smoker ??? Smokeless tobacco: Never Used Vaping Use ??? Vaping Use: Never used Substance and Sexual Activity ??? Alcohol use: Yes Alcohol/week: 2.0 standard drinks Types: 2 Glasses of wine per week ??? Drug use: Never ??? Sexual activity: Not on file ROS: Pertinent items noted in HPI. PHYSICAL EXAM: This is a 45 y.o. [...] and empty can. Positive impingement signs. Positive Warner's. Painful apprehension testing. Negative cross arm testing. DIAGNOSTIC STUDIES: Patient to be referred for radiographs following today's visit. Order placed. MEDICAL DECISION MAKING: This patient is a 45 y.o. female with a history of right SLAP repair in 2005 at [facility] who presents for evaluation of right shoulder pain since an injury sustained playing volleyball ~6-7 weeks ago. -- Exam findings were reviewed with the patient today and her questions were answered. Reviewed various management options and participated in shared decision making with the patient -- MR arthrogram ordered for further evaluation -- Rest, ice, elevation, NSAIDs for symptom relief as needed. Activity modification as needed but encourage continued gentle motion with the shoulder to prevent stiffness -- Will contact patient to discuss results by phone after MR arthrogram. The patient understands tocontact us prior to this if they have any other questions, concerns or worsening symptoms Cyndie Yancey PA-C documented in this encounter Plan of Treatment Not on file documented as of this encounter Results * MRI Arthrogram Shoulder [...] who have questions please contact the health health care attorney that requested your imaging first. ? Electronically signed by: Wenceslao Rudd MD, [facility] ([phone]), at 12/07/2020 2:45 PM Narrative 12/07/2020 2:45 [...] anchor. Normal extra-articular biceps. Bones: No fracture. Goodman at the superior glenoid, consistent with prior [...] biceps anchor.Normal extra-articular biceps. Bones: No fracture. Goodman at the superior glenoid, consistent withprior repair. [...] patients who have questions please contactthe health health care attorney that requested your imaging first. Electronically signed by: Wenceslao Rudd MD, [facility]([phone]), at 12/07/2020 2:45 PM Myriam Gamboa MD [facility] [place] * XR Fluoro Arthrogram Injection Shoulder Right [...] who have questions please contact the health health care attorney that requested your imaging first. ? Electronically signed by: Luis Lechuga MD, [facility] ([phone]), at 12/07/2020 1:43 PM Narrative 12/07/2020 1:43 PM EDT HISTORY: ??right shoulder injury, history of SLAP repair, new injury/pain, MR arthrogram of Arthrogram For Injection Of Contrast TECHNIQUE: After an extensive conversation with the patient regarding risks and benefits, oral and written consent were obtained.? A pre-procedural time-out was performed, including review of the patient's relevant electronic medical record and allergies, as per [facility] protocol. The patient was positioned supine on [...] relevant electronic medicalrecord and allergies, as per [facility] protocol. The patient was positioned supine on [...] patients who have questions please contactthe health health care attorney that requested your imaging first. Electronically signed by: Luis Lechuga MD, [facility]([phone]), at 12/07/2020 1:43 PM Myriam Gamboa MD IMG FLUORO ORDERABLE S * XR Shoulder Right (Generic) (11/24/2020 12:04 [...] who have questions please contact the health health care attorney that requested your imaging first. ? Electronically signed by: Val Moses MD, [facility] ([phone]), at 11/24/2020 4:29 PM Narrative 11/24/2020 4:29 [...] patients who have questions please contactthe health health care attorney that requested your imaging first. Electronically signed by: Val Moses MD, [facility]([phone]), at 11/24/2020 4:29 PM Myriam Gamboa MD IMG DX ORDERABLES documented in this encounter Visit Diagnoses Diagnosis Injury of right shoulder, initial encounter- Primary History of Superior glenoid labrum lesion of right shoulder, s/p repair at [facility] in 2005 Injury of right shoulder, initial encounter Superior glenoid labrum lesion of right shoulder, initial encounter Injury of right shoulder, initial encounter History of Superior glenoid labrum lesion of right shoulder, s/p repair at [facility] in 2005 Injury of right shoulder, initial encounter History of Superior glenoid labrum lesion of right shoulder, s/p repair at [facility] in 2005 documented in this encounter Care Teams Dough Brake Machine Operator Relationship Specialty Start Date End Date None None PCP - General 02/10/20 12/06/20 documented as of this encounter
--- OUTSIDE RECORDS SUMMARY | 2024-02-23 16:01 | XMS_ITS | Data Portability ---
Author Organization [place] [facility] Address [address] [place] [address] Care Team Providers Care [place] Name Role Phone ROCIO VELASQUEZ Primary Care Provider ROCIO VELASQUEZ Referring Provider Assessment Encounter Date Assessment Date Assessment LastModified by Organization Details LastModified Time 04/10/2023 04/10/2023 Assessment: Righ t hip greater trochanteric pain syndrome with mild underlying osteoarthritis Date of Injury: Date of Surgery: Plan: Patient is a very pleasant 47-year-old female whose history, physical examination imaging studies are primarily consistent with right hip greater trochanteric pain syndrome with mild underlying osteoarthritis. I have discussed this with her in detail. I have reviewed her imaging and exam findings. I have discussed treatment options and I have recommended that we start a formal physical therapy program. I have also talked to her about for both diagnostic and therapeutic purposes try a cortisone injection to the greater trochanter to see if we can alleviate some of the pains that she is having because her symptoms are so multifocal. The risks and benefits were explained in detail and she wished to proceed. She tolerated the injection well. I will see her back in 6 weeks' time for repeat evaluation. She is happy with this plan all her questions were answered. Work Status: [email or web address] Not available 04/10/2023 08:28:51 05/29/2023 05/29/2023 Assessment: Righ t hip greater trochanteric pain syndrome with mild underlying osteoarthritis Date of Injury: Date of Surgery: Plan: Patient is a very pleasant 48-year-old female whose history, physical examination imaging studies are primarily consistent with right hip greater trochanteric pain syndrome with mild underlying osteoarthritis. I have discussed this with her in detail. I have reviewed her imaging and exam findings. I have discussed treatment options. She is failed extensive conservative management at this point including injections and physical therapy. I have recommended that we obtain an MRI of the right hip to see if there is some underlying structural issues. I will see her back after the MRI. She is happy with this plan all her questions were answered. Work Status: [email or web address] Not available 05/29/2023 13:13:20 06/17/2023 06/17/2023 Assessment: [place]allero hip greater trochanteric pain syndrome with lumbar degenerative disc disease Date of Injury: Date of Surgery: Plan: Patient is a very pleasant 48-year-old female whose history, physical examination imaging studies are primarily consistent with right hip greater trochanteric pain syndrome with an MRI of her hips that overall looks fairly good. There is some minimal edema noted of the greater trochanteric bursa. I have reviewed her imaging and exam findings with her in detail. She is gone through physical therapy and a cortisone injection to the greater trochanter without much relief. At this point I have recommended that we obtain a lumbar spine MRI and have her follow up with pain management to see if there is something related to the lumbar spine that can be done to alleviate her symptoms. I have also referred her to see a pelvic floor physical therapist to see if that can alleviate some of her symptoms. The patient is happy with this plan all her questions were answered. We did discuss the possibility of doing at some point a trochanteric bursectomy if nothing else helps. Work Status: [email or web address] Not available 06/17/2023 10:59:22 08/08/2023 08/08/2023 Assessment: 1. Lumbosacral radiculopathy, right L5, S1 2. Lumbosacral spondylosis without myelopathy 3. Lumbar facet arthropathy 4. Myofascial pain 5. Right greater trochanteric bursitis 6. Sacroiliitis, right 7. Iliac crest pain, right Plan: In order to help the patient reduce their pain and improve their functional status, recommend the following: Continue conservative management, including rest, NSAIDs PRN, acetaminophen PRN, heat/ice therapy, daily exercises as part of physician prescribed home exercise program, physical therapy - 08/08/23: I had the opportunity to view and interpret the lumbar MRI done on 07/04/23 at [facility], which shows lumbar facet hypertrophy. There is a small right foraminal disc herniation. Interventions: - patient will return for right SIJ injection - If the above measures are unsuccessful, will consider right facet injection, LMBB, LESI, TFESI in the future [email or web address] Not available 08/08/2023 11:25:25 Plan of Treatment Reminders Order Date Submit Date Provider Last Modified By Organization Details Last Modified Time Details Appointments None recorded. Lab None recorded. Referral physical therapist referral - Right hip greater trochanter ic pain syndrome with mild underlying osteoarthr itis 2023 024 [email or web address] Not available 4 10:17:55 physical therapist referral 2023 024 [email or web address] Not available 10:52:22 Procedures injection, sacroiliac joint (PROC) 2023 024 [email or web address] [facility], [address], [place], [address], 4 12:24:28 Surgeries None recorded. Imaging MRI, hip, w/o contrast - Hip pain r/o (CPT: 03027) 2023 024 [facility], [address] [place] [address], [address], 4 15:10:28 MRI, lumbar spine, w/o contrast - Back pain/lumba r radiculopa thy eval for nerve compressio n (CPT: 52614) 2023 024 [facility] [place], [address] [facility], [facility] [address], [place], [address], 15:10:47 Medication Orders None recorded. Patient TargetsNo targets recorded. Patient InstructionsNo instructions recorded. Reason for Referral Physical Therapist Referral for Pain in right hip joint Right hip greater trochanteric pain syndrome with mild underlying osteoarthritis Referring Physician: Marcio Neumann, Orthopedic Surgery, Encounter Date: 04/10/2023 Physical Therapist Referral for Pain in right hip joint Referring Physician: Marcio Neumann, Orthopedic Surgery, Encounter Date: 06/17/2023 Results Created Date Observation Date Name Description Value Unit Range Abnormal Flag Note LastModifiedBy Organization Detail LastModifiedTime 04/10/19 24 04/10/2023 x-ray Hip INTERFACE [facility] [address], [place], [address], 04/10/2023 08:12:16 06/07/19 24 06/06/2023 hip right MRI op Ordere d By: MARCIO NEUMANN MD PROCED URE: MRI of the right hip: INDICA TION: PAIN IN RIGHT HIP JOINT. TECHNI QUE: Romero l T1, STIR, axial T2 fat satura yvon and T1 weight ed sequen adin were obtain ed throug h both hips. Axial, sagitt al and romero l proton densit y fat satura yvon sequen adin were obtain ed throug h the right hip. COMPAR JAC: None FINDIN GS: No bony signal abnorm alitie s are identi fied. There is no eviden ce of labral tear. No articu lar abnorm alitie s are identi fied. There is edema early years teacher olater al to the greate r trocha nter deep to the IT band, early years teacher iorly, and distal to the gluteu s medius tendon insert ion. There is asymme try of fatty tissue in this region . No discre te fluid collec tion or disten ded bursa is seen. No intrin sic tendon abnorm alitie s are seen. Region al soft tissue s are otherw ise unrema rkable . IMPRES JEAN-PAUL: Asymme tric edema along the greate r trocha nter withou t discre te tendon tear. No articu lar abnorm ality at the right hip. ------ ------ ------ ------ ------ ------ ----- Electr onical ly Signed : 2023 1548 Signed By: Gilmar Quezada. Report ed By: GILMAR QUEZADA MD Signed By: GILMAR QUEZADA MD [email or web address] Lab[facility]Im[facility] [address] [place], [address], 06/09/2023 08:25:49 06/10/19 MRI, hip, w/o contr ast No observ ation record ed. [email or web address] Not Available 05/23 13:11:47 06/17/19 24 06/17/2023 x-ray L Spine INTERFACE [facility] [address] [facility], [place], [address], 06/17/2023 10:44:02 07/04/19 24 07/04/2023 magne tic reson ance MR Lumbar WO(Unp aired) INTERFACE [facility] [address] [facility], [place], [address], 07/04/2023 11:47:02 07/04/19 24 07/04/2023 MRI, lumba r spine , w/o contr ast No observ ation record ed. [email or web address] [facility] [place] [address] [facility] [address], [place], [address], 07/07/2023 08:29:36 Result Notes None recorded. Procedures Surgical History Date Name Laterality Status Provider Name and Address Organization Details Recorded Time 024 [facility] Xray Lumbar Spine (2) completed Marcio Neumann MD [address] [place], [address], [facility] 06/17/2023 10:51:41 024 Test Interpretation completed Marcio Neumann MD [address] [place], [address], [facility] 06/17/2023 10:36:33 024 Test Interpretation completed Marcio Neumann MD [address] [place], [address], [facility] 05/29/2023 13:07:04 024 [facility] Xray Hip (2-3) completed Marcio Neumann MD [address] [place], [address], [facility] 04/10/2023 08:21:07 024 [facility] Xray AP Pelvis (1) completed Marcio Neumann MD [address] [place], [address], [facility] 04/10/2023 08:15:50 024 [facility] Injection Greater Trochanter RIGHT completed Marcio Neumann MD [address] [place], [address], [facility] 04/10/2023 08:28:56 Imaging Results Imaging Date Name Status LastModified by Organiz ation Details LastModified Time 04/10/2023 x-ray completed [facility]FACE [facility] [place], [address], 04/10/2023 08:12:16 06/06/2023 hip right MRI op completed [address] Lab/Imaging [address] [place] [address], [address], 06/09/2023 08:25:49 06/10/2023 MRI, hip, w/o contrast [place] [address] Information not available 06/12/2023 13:11:47 06/17/2023 [facility] [place], [address], 06/17/2023 10:44:02 07/04/2023 magnetic resonance completed INTERFACE [facility] [place] [address] [place], [address], 07/04/2023 11:47:02 07/04/2023 MRI, lumbar spine, w/o contrast completed [place] [address] [facility] [place] [address] [facility] [address], [place], [address], 07/07/2023 08:29:36 Procedure Notes None recorded. Medical Equipment None Reported. Allergies Allergen ID Allergen Name Allergen Category Reaction Reaction Severity Criticality Documentation Date Start Date Code Code System Note Provider Name and Address Organization Details Recorded Time 14434 morphine medicatio n Not available Not available Not available 04/10/2023 7052 RxNorm Marcio Neumann MD [address] [place], [address], [facility] - [facility] [place] 08:15:00 Medications Name Sig Start Date Stop Date Status Note LastModified by Organization Details LastModified Time fluconazole 150 mg tablet TAKE ONE TABLET BY MOUTH AT ONSET OF SYMPTOMS CONERNING YEAST INFECTION ; IF SYMPTOMS HAVE NOT COMPLETEL Y RESOLVED IN 72 HOURS REPEAT DOSE active Not Available Not Available No t Available metronidazo le 500 mg tablet TAKE ONE TABLET BY MOUTH TWICE A DAY 04/10 completed Not Available Not Available Not Available amoxicillin 875 mg tablet TAKE ONE TABLET BY MOUTH EVERY 12 HOURS FOR 7 DAYS active Not Available Not Available No t Available oxybutynin chloride 5 mg tablet TAKE ONE TABLET BY MOUTH THREE TIMES A DAY NEEDED FOR BLADDER SPASMS active Not Available Not Available No t Available Flovent HFA 110 mcg/actuati on aerosol inhaler INHALE TWO PUFFS BY MOUTH TWICE A DAY active Not Available Not Available No t Available levalbutero l HFA 45 mcg/actuati on aerosol inhaler INHALE TWO PUFFS BY MOUTH FOUR TIMES A DAY NEEDED active Not Available Not Available No t Available Symbicort 160 mcg-4.5 mcg/actuati on HFA aerosol inhaler INHALE TWO PUFFS BY MOUTH TWICE A DAY active Not Available Not Available No t Available Vitals Date Recorded Body height Body weight Provider Name and Address Organization Details Last Updated DateTime 04/18/2023 162.6 cm 62892.6 g Not Available Capsule 04/18 10:42:54 Date Recorded Body height Body weight Provider Name and Address Organization Details Last Updated DateTime 06/14/2023 160 cm 87814.2 g Not Available Capsule 06/13 17:02:51 Date Recorded Body height Body weight Provider Name and Address Organization Details Last Updated DateTime 07/07/2023 160 cm 70053.8 g Not Available Capsule 07/06 13:42:21 Date Recorded Body height Body weight Provider Name and Address Organization Details Last Updated DateTime 07/17/2023 160 cm 74793.8 g Not Available Capsule 07/16 05:34:17 Social History Question Answer Notes LastModified by Organization D etails LastModified Time Have You Had X-rays/imaging For Today's Condition? No Information not available 04/10/2023 Have You Had A Bone Density Screening? No Information not available 04/10/2023 Sex: Unknown Functional Status None recorded. Mental Status None recorded. Family History Nothing Reported. Medical History No medical history recorded. Gynecological HistoryNo gynecological history recorded. Obstetrics History GPAL:G 0 P 0 0 0 0 Past Encounters Encounter ID Performer Location Encounter Start Date Encounter Closed Date Diagnosis/Indication Diagnosis SNOMED-CT Code Diagnosis ICD10 Code [id number] Marcio Neumann MD [facility] [address] [place] [address] 04/10/2023 07:57:38 04/10/2023 10:17:55 Pain in right hip joint [id number] 27685 M25.551 [id number] Marcio Neumann MD [facility] [address] [place] [address] 05/29/2023 12:58:40 05/29/2023 13:26:31 Pain in right hip joint [id number] 59839 M25.551 [id number] Marcio Neumann MD [facility] [address] [place] [address] 06/17/2023 10:09:57 06/18/2023 10:41:14 Pain in right hip joint [id number] 60822 M25.551 Degenerati on of lumbar intervertebral disc 76107102 M51.36 [id number] Christine Bowie MD [facility] [address] [place] [address] 08/08/2023 10:58:15 08/11/2023 15:23:50 Lumbosacral radiculopathy 3824328 M54.17 Lumbosacra l spondylosis without myelopathy 73894478 M47.817 Arthropath y of lumbar facet joint 713601251 M47.816 Myofascial pain 11513428 9 M79.10 Greater tr ochanteric pain syndrome 5126373 M70.61 Inflammati on of sacroiliac joint 02383480 M46.1 Health Concerns Section Related Observation LastModified by Organization Detai ls LastModified Time None Recorded Concern Status LastModified by Organization Details LastModified Time None Recorded Advance Directives Directive None Recorded Payers Encounter Date Sequence Insurance Name Policy Number Policy Humphrey Covered Member ID Humphrey Member ID Guarantor Name 04/10/2023 1 [facility] [id number] Che Cuellars [id number] Treny L Yan 05/29/2023 1 [facility] [id number] Che Cuellars [id number] Treny L Yan 06/17/2023 1 [facility] [id number] Che Cuellars [id number] Treny L Yan 08/08/2023 1 [facility] [id number] Che Cuellars [id number] Treny L Yan Notes Date Note Type Note Provider Name and Address Organization Details Recorded Time 04/10/2023 text/html Diagnosis: Right hip pain Previous Surgeries: Right hip arthroscopy, femoral neck and acetabular osteoplasty, labral repair and trochanteric bursectomy in 2013 Date of Injury: History of Present Illness: Ms. Yan is a very pleasant 47-year-old female referred here for evaluation of right hip pain. She states that over the last couple years she has been having progressively worsening hip pain. It is primarily localized to the lateral side of the hip but she also gets pain in her buttocks area as well as deep in her groin area. It bothers her with activities. She denies any numbness, tingling, fevers or chills [place], [address], [facility] 04/10/2023 08:29:29 05/29/2023 text/html Diagnosis: Right hip pain Previous Surgeries: Right hip arthroscopy, femoral neck and acetabular osteoplasty, labral repair and trochanteric bursectomy in 2013 Date of Injury: History of Present Illness: Ms. Yan is a very pleasant 48-year-old female here for follow-up evaluation of right hip pain. She states that over the last couple years she has been having progressively worsening hip pain. It is primarily localized to the lateral side of the hip but she also gets pain in her buttocks area as well as deep in her groin area. It was bothering her with activities. She denies any numbness tingling fevers or chills. At her last visit on 04/10/2023 she had a greater trochanteric injection. She states that the cortisone injection gave her no significant relief. She has been doing physical therapy which gives her maybe some short-term benefit but it has not given her significant relief. Marcio Neumann MD [address] [place], [address], [facility] [employer] [facility] 05/29/2023 13:13:36 06/17/2023 text/html Diagnosis: Right hip pain Previous Surgeries: Right hip arthroscopy, femoral neck and acetabular osteoplasty, labral repair and trochanteric bursectomy in 2013 Date of Injury: History of Present Illness: Ms. Yan is a very pleasant 48-year-old female here for follow-up evaluation of right hip pain. She states that over the last couple years she has been having progressively worsening hip pain. It is primarily localized to the lateral side of the hip but she also gets pain in her buttocks area as well as deep in her groin area. It was bothering her with activities. She denies any numbness tingling fevers or chills. At her visit on 04/10/2023 she had a greater trochanteric injection. She states that the cortisone injection gave her no significant relief. She has been doing physical therapy which gives her maybe some short-term benefit but it has not given her significant relief. She had an MRI of her hip and is here for follow-up evaluation. She states she gets pain sometimes in her lower lumbar spine and SI joint. Marcio Neumann MD [address] [place], [address], [facility] [employer] [facility] 06/17/2023 10:59:53 08/08/2023 text/html [facility] New Pain Management ConsultReported bypatient.Patient describes the pain to beRight sided back/buttock/hip pain Patient describes the quality of the pain to becurrently: 4/10 on VAS scale; at its worst: 6/10 on VAS scale; Intermittent/frequen t aching/tenderness Right hip weakness/tired feeling, gluteus tightness Patient states the pain is aggravated byprolonged sitting/walking, pelvic tilts, getting out of a car, sit to stand transitioning post prolonged sitting, exercises. Patient acknowledges associated symptoms to includeno numbness; no tingling; no swelling; no redness; no warmth; no ecchymosis; no popping/clicking; no buckling; no instability; no radiation down leg; no fever; no chills; no weight loss; no change in bowel habits; no urinary retention; no urinary incontinence; no perineal parasthesia/anesthes ia; normal dexterity/coordinati on; normal balance;weakness(rig ht hip) Patient's related surgeriesnone Patient's previous imaging includesMRI (Lumbar 07/04/2023) Patient's previous injections includenone Patient has tried and failedrest; at least 6 weeks of a physician directed home exercise program in the last 3 months; at least 6 weeks of PT/OT in the last 3 months; massage; stretching; Medications: Ibuprofen PRN; rolling on an exercise ball, dry needling, cupping [place], [address], [facility] 08/08/2023 11:25:49 OBGyn Episode No OBEpisode recorded.
== END 2024-02-23 15:59 | disposition home or self-care (01) ==
LOC: LBN 15:58
PROVIDERS: PCP Nurse Practitioner Family; Visit Provider Nurse Practitioner Gerontology
DX: Z34.91 Encounter for supervision of normal pregnancy, unspecified, first trimester (principal); Z90.711 Acquired absence of uterus with remaining cervical stump; N32.89 Other specified disorders of bladder
CPT/HCPCS: 87077; 87086; 87186

== ENCOUNTER 2024-03-05 15:26 | Outpatient (REF) | payer BC, SELFPAY ==
[2024-03-05 17:27] LABS: Bilirubin Negative (Negative); Blood Negative (Negative); Clarity Clear (Clear); Glucose Negative (Negative); Ketones Negative (Negative); Leukocyte Esterase Negative (Negative); Nitrite Negative (Negative); Specific Gravity 1.025 (1.005-1.025); Urobilinogen 0.2 mg/dL (Up to 0.2); pH 5.5 (5-8)
== END 2024-03-05 15:27 | disposition home or self-care (01) ==
LOC: LBN 15:26
PROVIDERS: PCP Nurse Practitioner Family; Visit Provider Nurse Practitioner Gerontology
DX: N39.0 Urinary tract infection, site not specified (principal); R82.89 Other abnormal findings on cytological and histological examination of urine
CPT/HCPCS: 81003; 87086

== ENCOUNTER 2024-03-25 11:25 | Outpatient (CLI) | payer OTHER, SELFPAY ==
[2024-03-25 10:26] LABS: Abs Immature Grans 0.01 10^3/uL (0.0-0.06); Absolute Basophil Count 0.04 10^3/uL (0.0-0.2); Absolute Eosinophil Count 0.09 10^3/uL (0.0-0.7); Absolute Lymphocyte Count 1.77 10^3/uL (1.2-3.4); Absolute Monocyte Count 0.31 10^3/uL (0.1-0.8); Absolute Neutrophil Count 2.63 10^3/uL (1.2-6.7); Basophils % 0.8 %; Eosinophils % 1.9 %; HCT 46.7 % (36.0-46.0); HGB 15.5 g/dL (11.2-15.7); Immature Grans % 0.2 %; Lymphocytes % 36.5 %; MCH 29.8 pg (27.0-33.0); MCHC 33.2 % (32.0-36.0); MCV 90 fL (80-95); MPV 10.7 fL (8.0-11.0); Monocytes % 6.4 %; Neutrophils % 54.2 %; Platelet Count 256 10^3/uL (130-400); RDW 11.4 % (11.7-14.6); RDW-SD 37.5 fL; WBC 4.85 10^3/uL (4.4-10.8)
[2024-03-25 11:14] LABS: Hemoglobin A1C 5.2 % (<5.7)
[2024-03-25 11:22] LABS: ALT 21 U/L (14-59); AST 20 U/L (15-37); Albumin 4.2 g/dL (3.4-5.0); Alkaline Phosphatase 74 U/L (46-116); BUN 21 mg/dL (7-18); Bilirubin, Total 0.41 mg/dL (0.2-1.0); CREATININE 0.9 mg/dL (0.55-1.02); Calcium 9.5 mg/dL (8.5-10.1); Calculated LDL 169 mg/dL (<100); Chloride 105 mmol/L (98-107); Cholesterol 272 mg/dL (<200); Estimated GFR 78.37 (mL/min/1.73m2); Glucose 97 mg/dL (74-106); HDL Cholesterol 85 mg/dL (40-60); Potassium 3.9 mmol/L (3.5-5.1); Sodium 142 mmol/L (136-145); TSH (W/Ref FT4) 1.17 uIU/mL (0.36-3.74); Triglyceride 92 mg/dL (<150)
[2024-03-30 13:44] LABS: 25-Hydroxy D Total 72 ng/mL; 25-Hydroxy D2 <4.0 ng/mL; 25-Hydroxy D3 72 ng/mL
== END 2024-03-25 11:26 | disposition home or self-care (01) ==
LOC: LBO 11:25
PROVIDERS: PCP Nurse Practitioner Family; Visit Provider Nurse Practitioner Family
DX: Z00.00 Encounter for general adult medical examination without abnormal findings (principal); E55.9 Vitamin D deficiency, unspecified; N95.1 Menopausal and female climacteric states; R68.89 Other general symptoms and signs
CPT/HCPCS: 36415; 80053; 80061; 82306; 83036; 84443; 85025

== ENCOUNTER 2024-04-15 02:28 | Outpatient (CLI) | payer OTHER, SELFPAY ==
--- NOTE | 2024-04-15 08:20 | DI.MAMMO_ITS ---
Exam(s) MAMMO SCREENING EXAM: MAMMO SCREENING CLINICAL HISTORY: Z12.31 Screening. TECHNIQUE: Bilateral full field digital CC and MLO mammographic images were obtained with 3D tomosyn thesis and utilizing computer aided detection (CAD). COMPARISON: Prior baseline mammogram of February 2018 and ultrasound performed at that time were rev iewed. FINDINGS: There has been no significant change in the appearance and distribution of the fibroglandular tissue. Previously described asymmetric density in the right breast is no longer evident. There are no new spiculated masses nor malignant appearing microcalcification groups. There is no significant architectural distortion nor skin thickening-retraction. IMPRESSION: No radiographic evidence of malignancy. BI-RADS Category 1 - Negative Breast Density - Category B - Scattered areas of fibroglandular density Breast density Category C or D implies that the patient has dense breast tissue. Dense breast tissue can make it harder to find cancer on a mammogram. Dense breast tissue is also associated with an incr eased risk of breast cancer. This information about the result of the mammogram report was provided to the patient to raise their awareness. Use this report when you speak with the patient about their risks for breast cancer, which includes their family history. At that time, you may recommend additional screening tests (Ultrasoun d or MRI) as these tests may add significant information. A negative radiographic report should not delay biopsy if a dominant or clinically suspicious mass is present. Up to ten percent of cancers are not identified on mammography. A negative report may reinforce clinical impression. Adenosis and dense breasts may obscure an underlying neoplasm. False positive reports average 6 to 10%. Patient will receive a letter notifying them of these results.
== END 2024-04-15 02:48 ==
PROVIDERS: PCP Nurse Practitioner Family; Visit Provider Nurse Practitioner Family
DX: Z12.31 Encounter for screening mammogram for malignant neoplasm of breast (principal); R92.323 Mammographic fibroglandular density, bilateral breasts
CPT/HCPCS: 77063; 77067

== ENCOUNTER 2024-06-16 10:32 | Outpatient (CLI) | payer OTHER, SELFPAY ==
--- NOTE | 2024-06-16 06:00 | DI.RAD_ITS ---
Exam(s) XR PAIN CLINIC SACRIOILIAC 2V EXAM: XR PAIN CLINIC SACRIOILIAC 2V CLINICAL HISTORY: DX: Sacroiliac Dysfunction. TECHNIQUE: Fluoroscopy was provided for the referring physician for guidance with performing pain cl inic injection procedure. COMPARISON: No exams were available for comparison FINDINGS: Please see procedure note for details. Fluoro time: 13 seconds RADIATION DOSE DELIVERED: Ka,r=2.63 mGy
[2024-06-16 10:36] VITALS: BP 117/80; PULSE 66; RESP 18; TEMP 36.6; O2SAT 100
[2024-06-16 10:56] VITALS: PULSE 76; PULSE 80; O2SAT 99
[2024-06-16 10:58] VITALS: BP 138/81; PULSE 70; RESP 13; O2SAT 99
[2024-06-16 11:00] VITALS: PULSE 72; RESP 9; O2SAT 98
[2024-06-16 11:01] VITALS: BP 134/83; PULSE 71; RESP 12; O2SAT 98
[2024-06-16 11:04] VITALS: BP 131/82; PULSE 70
--- NOTE | 2024-06-16 11:04 | PDOC.PAIN_ITS ---
Date of service: 06/16/24 Time of Service: 11:04 Pain Managment Procedure Note Procedure Note Procedure Note: PROCEDURE NOTE RIGHT INTRA-ARTICULAR SACROILIAC JOINT INJECTION Date of Service: June 16, 2024 Patient: Che Yan Provider: King Schmidt DO, MPH COMMENTS: I previously evaluated the patient in the office and their symptoms in relation to the sacroiliac joint pain have remained the same. Pre-operative diagnosis: Sacroiliac joint dysfunction ICD-10 M53.3 Post-operative diagnosis: Same Pre-procedure pain: VAS= 4/10 Che Yan has been referred to our [facility] for a Right intra-articular Sacroiliac joint injection. Che was interviewed and the medical record reviewed. There were no medical, pharmacologic, radiographic or other structural contraindications to attempting a fluoroscopically-guided, contrast-enhanced, intra-articular Sacroiliac joint injection. The risks, benefits, and potential side effects of this procedure were reviewed with the patient. Questions and concerns were addressed. After it was clear that Che was fully informed about the procedure, the printed consent form was signed by the patient and myself. Che was placed in the prone position on the fluoroscopy table and an automated blood pressure cuff, 3 lead EKG, and pulse oximeter were applied. The skin entry point for approaching the Right sacroiliac joint was identified under the most advantageous fluoroscopic view and marked. Following thorough Chlorhexadine preparation of the skin and draping with sterile surgical drapes, 2 mls of 1% lidocaine was infiltrated into the skin at the entry point and the surrounding subcutaneous tissues. Next, a 3.5 22G spinal needle was placed under fluoros copic guidance into the Right sacroiliac joint. Intra-articular placement was confirmed by a clear arthrogram resulting from the injection of 0.25ml of Omnipaque-240. Next, 1 ml of Depo- Medrol 80 mg/ml was injected intra- articularly with an initial reproduction of a significant component of the usual pain. This was followed with 1 ml of 1% Lidocaine. The needle was then removed without difficulty. (49 ml of Omnipaque-240 was wasted). Che's vital signs were stable throughout the procedure and were as recorded in nursing records. Follow up plans and appointments were discussed with Che. Post procedure instructions were given as documented in nursing records. Having met discharge criteria, Che was [facility] the [facility]. COMMENTS: Post-procedure pain: VAS= 2/10. If the patient receives at least 50% improvement in pain and/or function for at least 3 months, this procedure can be repeated if needed. I personally performed this entire procedure. KING SCHMIDT DO, MPH ABPMR-subspecialty board certification in Pain Medicine [facility] Coding Conscious Sedation used for procedure: No CPT Codes: SI Joint Inj; incl Fluoro - 28640 ([id number] ~G) Additional Codes: Date of Service (89338) Date of service: 06/16/24
[2024-06-16] MEDS: methylPREDNISolone ACETATE 80 MG/ML VIAL IJ (11:08)
[2024-06-16] MEDS: Nerve Block Tray 1 EACH MC (11:08)
[2024-06-16] MEDS: Omnipaque 240 MG/ML 50 ML BTL IJ (11:08)
== END 2024-06-16 10:33 | disposition home or self-care (01) ==
LOC: PC 10:32
PROVIDERS: PCP Nurse Practitioner Family; Visit Provider Preventive Medicine Occupational Medicine
DX: M53.3 Sacrococcygeal disorders, not elsewhere classified (principal)
CPT/HCPCS: 27096; 72200; J1010; Q9967

== ENCOUNTER 2024-06-26 15:33 | Outpatient (REF) | payer OTHER, SELFPAY | END 2024-06-26 15:34 | disposition home or self-care (01) | LOC: LBN 15:33 | PROVIDERS: PCP Nurse Practitioner Family; Visit Provider Nurse Practitioner Family | DX: R30.0 Dysuria (principal) | CPT/HCPCS: 87086 ==